=== PATIENT | female | born 1965 | race Caucasian/White ===

== ENCOUNTER 2018-01-16 00:20 | Emergency (ER) | payer SELFPAY ==
[~2018-01-16] VITALS: Ht 165.1 cm; Wt 61.2 kg
[~2018-01-16 00:20] MED LIST: CALCIUM600 M3 PO; FISH OIL 1,2001 EAC1 PO; OMEPRAZOLE20 M3 PO; TURMERIC500 M1 PO; VITAMIN B COMP1 EACH PO; VITAMIN C500 M6 PO; VITAMIN D2000 UNIT PO
[2018-01-16 00:28] VITALS: BP 132/80
--- NOTE | 2018-01-16 00:36 | ED SYNCOPE COMPLAINT ---
History of Present Illness General Chief Complaint: General Adult Stated Complaint: ? SYNCOPE, VAG BLEEDING Source: patient, family Exam Limitations: no limitations Vital Signs & Intake/Output Vital Signs & Intake/Output Vital Signs Date Time Temp Pulse Resp B/P B/P Pulse O2 O2 Flow FiO2 Mean Ox Delivery Rate 01/16 0043 98 Room Air Room Air 01/16 0028 98.1 58 16 132/80 98 Room Air Room Air Allergies Coded Allergies: epinephrine (HEART RACES 02/24/17) Reconcile Medications Ascorbate Calcium (Vitamin C) (Unknown Strength) TABLET (Unknown Dose) PO DAILY SUPPLEMENT (Reported) Calcium (Elemental-Fr Calcarb) (Calcium) (Unknown Strength) TABLET (Unknown Dose) PO DAILY SUPPLEMENT (Reported) Cholecalciferol (Vitamin D3) (Vitamin D) (Unknown Strength) CAPSULE (Unknown Dose) PO DAILY SUPPLEMENT (Reported) [place]-3 Fatty Acids/Fish Oil (Fish Oil 1,200 MG Softgel) (Unknown Strength) CAPSULE.DR (Unknown Dose) PO DAILY SUPPLEMENT (Reported) Omeprazole 20 MG TABLET.DR 1 TAB PO DAILY PRN GERD Turmeric Root Extract (Turmeric) (Unknown Strength) CAPSULE (Unknown Dose) PO DAILY SUPPLEMENT (Reported) Vitamin B Complex (Unknown Strength) CAPSULE (Unknown Dose) PO DAILY SUPPLEMENT (Reported) Triage Note: 52YO FEMALE TO RM5 FROM HOME VIA AMBULANCE W/CO NEAR SYNCOPAL EPISODE TONITE. STATS SHE BEGAN VAG BLEEDING 2 D AGO AND TONITE VERY HEAVY. Triage Nurses Notes Reviewed? yes Timing: single episode today Episode Description: NEAR FAINTING ASSOCIATED WITH HEAVY MENSTRAL PERIOD Loss of Consciousness: no loss of consciousness Associated Symptoms: SEE ABOVE HPI: Patient presents for evaluation of a near syncopal episode that occurred prior to arrival while at home. Patient states that she was feeling weak today as a result of heavy vaginal bleeding (her menstrual period) over the past 2 days. She denies loss of consciousness. She has no complaint at present. She denies abdominal pain or chest pain but did feel palpitations during the episode prior to arrival. She has been changing her pads about every 90 minutes or so. She had fibroids removed last year and after had no menstrual period until now. Past History Travel History Traveled to [place] past 21 day No Medical History Any Pertinent Medical History? 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 No Review of Systems Review of Systems Constitutional: Reports: no symptoms. EENTM: Reports: no symptoms. Respiratory: Reports: no symptoms. Cardiovascular: Reports: see HPI. GI: Reports: no symptoms. Genitourinary: Reports: see HPI. Musculoskeletal: Reports: no symptoms. Skin: Reports: no symptoms. Neurological/Psychological: Reports: no symptoms. All Other Systems: Reviewed and Negative Physical Exam Physical Exam Cranial Nerves: SEE BELOW Comments: Gen.: Well-nourished, well-developed, no acute respiratory distress. Head: Normocephalic, atraumatic. Eyes: Normal inspection bilaterally Ears: Normal inspection bilaterally Nose: Normal inspection Throat/mouth : Moist mucosa Neck: Supple, full range of motion, no goiter Heart: Regular rate and rhythm, no murmurs rubs or gallops Lungs: Clear to auscultation bilaterally with normal air entry Chest: Nontender Back: Normal range of motion Abdomen: Soft, nontender, nondistended, normal bowel sounds Extremities: Normal range of motion grossly, equal radial pulses, no cyanosis clubbing or edema Neurologic: Cranial nerves grossly intact, speech is clear Skin: warm and dry Psychiatric: Calm, cooperative, no apparent delusions or hallucinations Core Measures ACS in differential dx? No CVA/TIA Diagnosis: No Sepsis Present: No Sepsis Focused Exam Completed? No Progress Differential Diagnosis: AMI, orthostatic syncope, sick sinus syndrome, vasodepressor syncope, ventricular tach/fib, ANEMIA, DEHYDRATION Plan of Care: Orders Procedure Date/time Status Telemetry/Transition Mgr Rn 01/16 0102 Active MISTAKE 01/16 003 Active TROPONIN LEVEL 01/16 003 Complete PROTHROMBIN TIME 01/17 36 Complete CBC WITHOUT DIFFERENTIAL 01/17 36 Complete BASIC METABOLIC PANEL 01/17 36 Complete EKG 01/17 36 Active Laboratory Tests 01/16/18 0036: Anion Gap 8, Estimated GFR > 60, BUN/Creatinine Ratio 25.7 H, Glucose 90, Calcium 8.7, Troponin I < 0.01, PT 11.2, INR 1.03, CBC w Diff NO MAN DIFF REQ, RBC 4.05 L, MCV 86.0, MCH 29.3, MCHC 34.0, RDW 13.1, MPV 8.4, Gran % 44.6, Lymphocytes % 46.2, Monocytes % 7.5, Eosinophils % 1.1, Basophils % 0.6, Absolute Granulocytes 2.9, Absolute Lymphocytes 3.0, Absolute Monocytes 0.5, Absolute Eosinophils 0.1, Absolute Basophils 0 Initial ED EKG: NSR, rate (60) Prior EKG: unchanged Rhythm Strip: normal sinus rhythm Comments: 01/16/2018 1:51:00 AM I have updated Cristina on her test results. She went to the bathroom more or less uneventfully during her emergency department stay. I feel she is stable for outpatient management of her vaginal bleeding, the likely cause of her symptoms, to her PUBLISHING AGENT physician. Departure Departure Disposition: HOME OR SELF CARE Condition: Stable Clinical Impression Primary Impression: Dysmenorrhea Referrals: Harris RYAN,Montrell Gonzales Additional Instructions: Maintain a good fluid intake. Follow-up with your PUBLISHING AGENT doctor as soon as possible given your severe vaginal bleeding. Notify your primary care doctor of this emergency department visit and treatment plan. Return if any concerns or sudden worsening. Departure Forms: Customer Survey General Discharge Information
[2018-01-16 00:52] LABS: ABSOLUTE BASOPHIL COUNT 0 /CUMM (0.0-0.2); ABSOLUTE EOSINOPHIL COUNT 0.1 /CUMM (0.0-0.7); ABSOLUTE GRANULOCYTE CT 2.9 /CUMM (1.4-6.5); ABSOLUTE MONOCYTE COUNT 0.5 /CUMM (0.10-0.60); BASOPHIL % 0.6 % (0.0-2.0); EOSINOPHIL % 1.1 % (0-5); GRANULOCYTE % 44.6 % (42.2-75.2); HEMATOCRIT 34.8 % (37-47); MEAN CORPUSCULAR HGB 29.3 PG (27.0-31.0); MEAN PLATELET VOLUME 8.4 FL (7.4-10.4); PLATELET COUNT 225 /CUMM (130-400); RBC DISTRIBUTION WIDTH 13.1 % (11.5-14.5); RED BLOOD CELL CT 4.05 /CUMM (4.20-5.40); WHITE BLOOD CELL COUNT 6.4 /CUMM (4.8-10.8)
[2018-01-16 00:56] LABS: PT 11.2 SEC (9.4-12.5)
== END 2018-01-16 02:07 ==
LOC: ERH 00:20
PROVIDERS: Emergency Medicine
DX: N94.6 Dysmenorrhea, unspecified (principal); R55 Syncope and collapse; R53.1 Weakness
CPT/HCPCS: 93005; 93010; 96360; 96361